=== PATIENT | male | born 1930 | race Caucasian/White ===

== ENCOUNTER 2021-07-02 18:34 | Inpatient (IN) | payer MEDICARE ==
[2021-07-02 19:55] LABS: #Eosinphils 0.1 thou/uL (0.0-0.7); #Monocytes 0.5 thou/uL (0.11-0.59); #Neutrophils 11.2 thou/uL (1.40-6.50); %Eosinophils 0.4 % (0.0-10.0); %Lymphocytes 7.7 % (21.0-51.0); %Neutrophils 87.9 % (42.0-75.0); Hemoglobin 14.7 g/dL (14.0-18.0); Mean Corpuscular HGB CONC 34.3 g/dL (32.0-36.0); Mean Corpuscular Hemoglobin 34.1 pg (27.0-31.0); Mean Corpuscular Volume 99.4 fL (78.0-98.0); Mean Platelet Volume 7.1 fL (7.4-10.4); Platelet Count 212 thou/uL (130-400); RBC Distribution Width 11.4 % (11.5-14.5); Red Blood Cell (RBC) Count 4.32 mill/uL (4.70-6.10); White Blood Cell (WBC) Count 12.7 thou/uL (4.8-10.8)
[2021-07-02 20:17] LABS: ALT (SGPT) 17 U/L (8-55); AST (SGOT) 19 U/L (5-34); Albumin 3.7 g/dL (3.4-4.8); Alkaline Phosphatase 66 U/L (40-110); Anion Gap 12 mmol/L (10-20); BUN (Urea Nitrogen) 20 mg/dL (8.4-25.7); Bilirubin, Total 1.4 mg/dL (0.2-1.2); Calc. Creatinine Clearance 0 mL/min (70-130); Calcium 9.2 mg/dL (7.8-10.44); Carbon Dioxide 24 mmol/L (23-31); Chloride 108 mmol/L (98-107); Globulin 2.9 g/dL (2.4-3.5); Glucose 109 mg/dL (83-110); Potassium 3.7 mmol/L (3.5-5.1); Protein, Total 6.6 g/dL (5.8-8.1); Sodium 140 mmol/L (136-145)
[2021-07-02] MEDS ORDERED: Dextrose 5% in Water 1,000 ML IV PRN (20:35)
[2021-07-02] MEDS ORDERED: Dextrose 50% Abboject 50 ML SYRINGE SLOW IVP PRN (20:35)
[2021-07-02] MEDS ORDERED: hydrALAZINE 20 MG/ML VIAL SLOW IVP PRN (20:35)
[2021-07-02] MEDS ORDERED: Ondansetron PF 4 MG/2 ML Vial IVP PRN (20:35)
[2021-07-02] MEDS ORDERED: Cyclobenzaprine 10 MG TAB PO PRN (20:38)
[2021-07-02] MEDS ORDERED: traMADol HCl 50 MG TAB PO PRN ×2 (20:38)
[2021-07-02] MEDS ORDERED: Morphine 4 MG/ML VIAL SLOW IVP PRN (20:42)
[2021-07-02] MEDS ORDERED: Sodium Chloride 0.9% 1,000 ML IV SCH (20:45)
[2021-07-02 20:52] LABS: Bacteria/HPF None Seen HPF (None Seen); Bilirubin Negative (Negative); Blood, Urine 3+ (Negative); Clarity Clear (Clear); Glucose, Urine (Dipstick) Normal (Negative); Ketone, Urine 60 mg/dL (Negative); Leukocyte Negative Leu/uL (Negative); Mucous/LPF Rare LPF (<2+); Nitrite Negative (Negative); Protein, Urine (Dipstick) 20 mg/dL (Neg-Trace); RBC/HPF Greater than 50 HPF (0-3); Specific Gravity, Urine 1.023 (1.002-1.036); Squamous Epithelial None Seen HPF (0-3); WBC/HPF 0-3 HPF (0-3); pH, Urine 8.5 (5.0-9.0)
[2021-07-02] MEDS ORDERED: Haloperidol Lactate 5 MG/ML VIAL SLOW IVP SCH (22:00)
[2021-07-02 22:44] LABS: Magnesium 1.7 mg/dL (1.6-2.6)
[2021-07-02 22:47] LABS: Troponin I 0.026 ng/mL (< 0.028)
[2021-07-02 22:49] LABS: Phosphorus 1.2 mg/dL (2.3-4.7)
[2021-07-02] MEDS ORDERED: Magnesium 2 GM/50 ML 2 GM in Premix Bag 1 BAG IVPB SCH (23:30)
[2021-07-02] MEDS ORDERED: Potassium Phosphate 30 MMOL in Sodium Chloride 0.9% 250 ML 250 ML IVPB SCH (23:30)
[2021-07-03 00:08] LABS: SARS-CoV-2 NAA Rapid Test Not Detected (NotDetected)
[2021-07-03] MEDS ORDERED: Famotidine 20 MG TAB PO SCH (01:00)
[2021-07-03] MEDS ORDERED: Magnesium 2 GM/50 ML BAG (IN WATER) ONE (01:37)
[2021-07-03] MEDS: Tamsulosin HCl 0.4 MG CAP PO SCH ×2 (02:30→21:10)
[2021-07-03] MEDS: Senokot S 8.6-50 MG TAB PO SCH ×3 (02:30→21:09)
[2021-07-03] MEDS: Ibuprofen 200 MG TAB PO SCH ×4 (02:30→21:10)
[2021-07-03] MEDS ORDERED: Famotidine 20 MG TAB ONE ×2 (02:34→09:12)
[2021-07-03] MEDS: Acetaminophen 500 MG TAB PO SCH ×4 (03:07→19:34)
[2021-07-03 04:41] LABS: #Eosinphils 0.1 thou/uL (0.0-0.7); #Lymphocytes 1.2 thou/uL (1.20-3.40); #Monocytes 0.6 thou/uL (0.11-0.59); #Neutrophils 8.4 thou/uL (1.40-6.50); %Eosinophils 0.5 % (0.0-10.0); %Lymphocytes 11.7 % (21.0-51.0); %Monocytes 5.6 % (0.0-10.0); %Neutrophils 82.2 % (42.0-75.0); Hemoglobin 15.3 g/dL (14.0-18.0); Mean Corpuscular HGB CONC 32.7 g/dL (32.0-36.0); Mean Corpuscular Hemoglobin 32.4 pg (27.0-31.0); Mean Corpuscular Volume 98.9 fL (78.0-98.0); Mean Platelet Volume 7.2 fL (7.4-10.4); Platelet Count 226 thou/uL (130-400); RBC Distribution Width 11.6 % (11.5-14.5); Red Blood Cell (RBC) Count 4.72 mill/uL (4.70-6.10); White Blood Cell (WBC) Count 10.2 thou/uL (4.8-10.8)
[2021-07-03 04:50] LABS: INR-International Normal Ratio 1.1; Prothrombin Time 14.3 sec (12.0-14.7)
[2021-07-03 05:17] LABS: Anion Gap 15 mmol/L (10-20); BUN (Urea Nitrogen) 20 mg/dL (8.4-25.7); Calc. Creatinine Clearance 61 mL/min (70-130); Calcium 9.4 mg/dL (7.8-10.44); Carbon Dioxide 22 mmol/L (23-31); Chloride 105 mmol/L (98-107); Glucose 121 mg/dL (83-110); Magnesium 2.4 mg/dL (1.6-2.6); Phosphorus 2.8 mg/dL (2.3-4.7); Potassium 3.7 mmol/L (3.5-5.1); Sodium 138 mmol/L (136-145)
[2021-07-03] MEDS ORDERED: CEFAZOLIN 2 GM in Sodium Chloride 0.9% 100 ML IVPB SCH (07:15)
[2021-07-03] MEDS: Famotidine 20 MG TAB PO SCH ×2 (09:33→21:09)
[2021-07-03] MEDS ORDERED: CEFAZOLIN 2 GM, Admixture Fee 1 EACH in Sodium Chloride 0.9% 100 ML IVPB SCH (09:45)
[2021-07-03] MEDS ORDERED: Acetaminophen 500 MG TAB ONE (12:16)
[2021-07-03] MEDS ORDERED: HYDROmorphone 2 MG/ML VIAL ONE (15:50)
[2021-07-03] MEDS ORDERED: Fentanyl 100 MCG/2 ML VIAL ONE ×2 (15:50→18:30)
[2021-07-03] MEDS ORDERED: Clindamycin/D5W 900 mg/50 ml Premix Bag ONE (15:58)
[2021-07-03] MEDS ORDERED: PHENYLEPHRINE-NS 100 MCG/ML 10 ML SYRINGE ONE (16:11)
[2021-07-03] MEDS ORDERED: Glycopyrrolate 0.2 MG/ML 5 ML SYRINGE ONE (16:11)
[2021-07-03] MEDS ORDERED: Dexamethasone 20 MG/5 ML VIAL ONE (16:11)
[2021-07-03] MEDS ORDERED: ePHEDrine 50 MG/ML VIAL ONE (16:11)
[2021-07-03] MEDS ORDERED: Rocuronium Bromide 10 MG/ML (10ML VIAL) ONE (16:11)
[2021-07-03] MEDS ORDERED: Ondansetron PF 4 MG/2 ML Vial ONE (16:11)
[2021-07-03] MEDS ORDERED: PROPOFOL 200 MG/20 ML VIAL ONE (16:11)
[2021-07-03] MEDS ORDERED: Lidocaine 1% PF 5 ML VIAL ONE (16:11)
[2021-07-03] MEDS ORDERED: Promethazine HCl 25 MG/ML VIAL IVPB PRN (17:42)
[2021-07-03] MEDS ORDERED: Ondansetron HCl/PF 4 MG/2 ML Vial IVP PRN (17:42)
[2021-07-03] MEDS ORDERED: HYDROmorphone 2 MG/ML VIAL SLOW IVP PRN (17:42)
[2021-07-03] MEDS ORDERED: Promethazine HCl 25 MG/ML VIAL IM PRN (17:42)
[2021-07-03] MEDS: Polyethylene Glycol 3350 17 GM Packet PO SCH (19:34)
[2021-07-03 20:12] VITALS: BMI 27.1
[2021-07-04] MEDS: Acetaminophen 500 MG TAB PO SCH ×4 (00:10→17:26)
[2021-07-04] MEDS: CEFAZOLIN 2 GM, Admixture Fee 1 EACH in Sodium Chloride 0.9% 100 ML IVPB SCH ×2 (00:21→09:39)
[2021-07-04] MEDS: Ibuprofen 200 MG TAB PO SCH ×2 (06:16→14:24)
[2021-07-04] MEDS ORDERED: FLU VACC QS2021-22(65YR UP)/PF 240 MCG/0.7 ML SYRINGE IM ONE (09:00)
[2021-07-04] MEDS ORDERED: Bisacodyl 10 MG SUPP PR SCH (09:00)
[2021-07-04] MEDS ORDERED: Aspirin 81 mg Enteric Coated Tablet PO SCH (09:00)
[2021-07-04] MEDS: Polyethylene Glycol 3350 17 GM Packet PO SCH (09:31)
[2021-07-04] MEDS: Famotidine 20 MG TAB PO SCH (09:32)
[2021-07-04] MEDS: Senokot S 8.6-50 MG TAB PO SCH (09:32)
[2021-07-04] MEDS: ceFAZolin Sodium/D5W 2 GM in Premix Bag 1 BAG IVPB SCH ×2 (10:23→17:57)
[2021-07-04 10:31] LABS: #Lymphocytes 0.7 thou/uL (1.20-3.40); #Monocytes 0.7 thou/uL (0.11-0.59); #Neutrophils 12.3 thou/uL (1.40-6.50); %Eosinophils 0.1 % (0.0-10.0); %Lymphocytes 5.2 % (21.0-51.0); %Monocytes 4.8 % (0.0-10.0); Hemoglobin 12.7 g/dL (14.0-18.0); Mean Corpuscular HGB CONC 32.6 g/dL (32.0-36.0); Mean Corpuscular Hemoglobin 32.8 pg (27.0-31.0); Mean Platelet Volume 7.3 fL (7.4-10.4); Platelet Count 199 thou/uL (130-400); RBC Distribution Width 11.6 % (11.5-14.5); Red Blood Cell (RBC) Count 3.87 mill/uL (4.70-6.10); White Blood Cell (WBC) Count 13.6 thou/uL (4.8-10.8)
[2021-07-04 10:45] LABS: Anion Gap 12 mmol/L (10-20); BUN (Urea Nitrogen) 23 mg/dL (8.4-25.7); Calc. Creatinine Clearance 53 mL/min (70-130); Calcium 8.1 mg/dL (7.8-10.44); Carbon Dioxide 23 mmol/L (23-31); Chloride 106 mmol/L (98-107); Glucose 157 mg/dL (83-110); Magnesium 1.8 mg/dL (1.6-2.6); Sodium 137 mmol/L (136-145)
[2021-07-04 16:13] VITALS: BP 153/78; TEMP 97.8
== END 2021-07-04 18:20 | DRG 522 ==
LOC: ERS 18:34 → ERHOLD 20:01 → SURG A 07-03 14:25
PROVIDERS: ADMIT Surgery; ATTEND Surgery
PROC: 0SRR0JA Replacement of Right Hip Joint, Femoral Surface with Synthetic Substitute, Uncemented, Open Approach (ICD-10-PCS; principal; 2021-07-03)
DX: S72.001A Fracture of unspecified part of neck of right femur, initial encounter for closed fracture (principal); Z20.822 Contact with and (suspected) exposure to COVID-19; I10 Essential (primary) hypertension; R33.9 Retention of urine, unspecified; H91.90 Unspecified hearing loss, unspecified ear; I08.1 Rheumatic disorders of both mitral and tricuspid valves; W18.30XA Fall on same level, unspecified, initial encounter; Y92.009 Unspecified place in unspecified non-institutional (private) residence as the place of occurrence of the external cause; Z90.49 Acquired absence of other specified parts of digestive tract; Z98.49 Cataract extraction status, unspecified eye; Z88.0 Allergy status to penicillin; Z91.013 Allergy to seafood; Z79.899 Other long term (current) drug therapy
CPT/HCPCS: 36415; 51702; 70450; 71045; 72125; 72170; 80048; 80053; 81003; 81015; 83735; 83880; 84100; 84484; 85025; 85610; 85730; 87086; 93005; 93306; C1713; C1776; G0390; J0690; J1100; J1170; J2405; J2704; J3010; J3475; J3490; J7030; J7050; U0002

== ENCOUNTER 2021-08-23 23:04 | Inpatient (IN) | payer MEDICARE ==
[2021-08-24] MEDS ORDERED: Acetaminophen 650 MG Suppository PR PRN (02:42)
[2021-08-24] MEDS ORDERED: Ondansetron PF 4 MG/2 ML Vial IVP PRN (02:42)
[2021-08-24] MEDS ORDERED: Ondansetron ODT 4 MG TAB PO PRN (02:42)
[2021-08-24 03:39] LABS: Anion Gap 17 mmol/L (10-20); BUN (Urea Nitrogen) 23 mg/dL (8.4-25.7); Calc. Creatinine Clearance 45 mL/min (70-130); Carbon Dioxide 17 mmol/L (23-31); Chloride 113 mmol/L (98-107); Glucose 145 mg/dL (83-110); Potassium 3.5 mmol/L (3.5-5.1); Sodium 143 mmol/L (136-145)
[2021-08-24] MEDS: Sodium Chloride 0.9% 1,000 ML IV SCH ×4 (03:46→17:03)
[2021-08-24] MEDS ORDERED: VANCOMYCIN 1.25 GM/250 ML BAG 1.25 GM in Premix Bag 1 BAG IVPB SCH (04:00)
[2021-08-24] MEDS ORDERED: Cefepime 2 GM in Sodium Chloride 0.9% 100 ML IVPB SCH (04:00)
[2021-08-24] MEDS: Vancomycin HCl 750 MG in Sodium Chloride 0.9% 250 ML 250 ML IVPB SCH ×2 (04:02→17:03)
[2021-08-24 07:02] LABS: Hemoglobin 9.5 g/dL (14.0-18.0); Mean Corpuscular HGB CONC 32.1 g/dL (32.0-36.0); Mean Corpuscular Hemoglobin 31.8 pg (27.0-31.0); Mean Corpuscular Volume 99.1 fL (78.0-98.0); Mean Platelet Volume 6.3 fL (7.4-10.4); Platelet Count 360 thou/uL (130-400); RBC Distribution Width 11.7 % (11.5-14.5); Red Blood Cell (RBC) Count 2.97 mill/uL (4.70-6.10); White Blood Cell (WBC) Count 31.7 thou/uL (4.8-10.8)
[2021-08-24 07:11] LABS: Lactic Acid 1.9 mmol/L (0.5-2.2)
[2021-08-24 08:21] LABS: Band 54 % (5-11); Lymphocytes 2 % (21-51); MDiff Complete? YES; Monocytes 3 % (0-10); Neutrophil 41 % (42-75); Platelet Morphology Comment Appears Adequate; Polychromasia SLIGHT = 2-3 cells (100X) (0-2/hpf); Toxic Granulation SLIGHT; Vacuoles SLIGHT
[2021-08-24] MEDS: Enoxaparin Sodium 40 MG/0.4 ML SYRINGE SC SCH ×2 (09:06→09:13)
[2021-08-24] MEDS ORDERED: Meropenem 1 GM in Sodium Chloride 0.9% 100 ML IVPB SCH ×2 (09:15→10:00)
[2021-08-24 16:53] LABS: Anion Gap 14 mmol/L (10-20); BUN (Urea Nitrogen) 26 mg/dL (8.4-25.7); Calc. Creatinine Clearance 48 mL/min (70-130); Calcium 7.9 mg/dL (7.8-10.44); Carbon Dioxide 18 mmol/L (23-31); Chloride 113 mmol/L (98-107); Glucose 100 mg/dL (83-110); Potassium 3.3 mmol/L (3.5-5.1); Sodium 142 mmol/L (136-145)
[2021-08-24] MEDS: Meropenem 1 GM in Sodium Chloride 0.9% 100 ML IVPB SCH (18:08)
[2021-08-24] MEDS ORDERED: Dextrose 5% in Water 1,000 ML IV PRN (18:13)
[2021-08-24] MEDS ORDERED: Dextrose 50% Abboject 50 ML SYRINGE SLOW IVP PRN (18:13)
[2021-08-24] MEDS ORDERED: Nitroglycerin 0.4 MG TAB (25 Tab Bottle) SL PRN (18:16)
[2021-08-24] MEDS ORDERED: Bisacodyl 10 MG SUPP PR SCH (21:00)
[2021-08-24] MEDS ORDERED: Enoxaparin Sodium 40 MG/0.4 ML SYRINGE SC SCH (21:00)
[2021-08-24] MEDS: Senokot S 8.6-50 MG TAB PO SCH (22:01)
[2021-08-24] MEDS: Melatonin 3 MG TAB PO PRN (22:10)
[2021-08-24] MEDS: Aspirin 81 mg Enteric Coated Tablet PO SCH (22:12)
[2021-08-24] MEDS: Acetaminophen 325 MG TAB PO PRN (22:13)
[2021-08-24] MEDS: Multivit, Therapeutic 1 TAB PO SCH (22:15)
[2021-08-24] MEDS: Polyethylene Glycol 3350 17 GM Packet PO SCH (22:16)
[2021-08-24] MEDS: Nystatin Powder 15 GM BOT TOP SCH (22:26)
[2021-08-25] MEDS: Sodium Chloride 0.9% 1,000 ML IV SCH ×3 (02:47→13:10)
[2021-08-25] MEDS: Meropenem 1 GM in Sodium Chloride 0.9% 100 ML IVPB SCH ×2 (02:47→11:26)
[2021-08-25 05:01] LABS: Vancomycin, Trough 16.7 ug/mL
[2021-08-25 05:03] LABS: ALT (SGPT) 43 U/L (8-55); AST (SGOT) 32 U/L (5-34); Albumin 2.5 g/dL (3.4-4.8); Alkaline Phosphatase 133 U/L (40-110); Anion Gap 13 mmol/L (10-20); BUN (Urea Nitrogen) 27 mg/dL (8.4-25.7); Bilirubin, Total 0.5 mg/dL (0.2-1.2); CRP (Inflammatory) 18.49 mg/dL (= or < 0.5); Calc. Creatinine Clearance 49 mL/min (70-130); Carbon Dioxide 18 mmol/L (23-31); Chloride 115 mmol/L (98-107); Globulin 3.2 g/dL (2.4-3.5); Glucose 94 mg/dL (83-110); Phosphorus 2.3 mg/dL (2.3-4.7); Potassium 3.3 mmol/L (3.5-5.1); Protein, Total 5.7 g/dL (5.8-8.1); Sodium 143 mmol/L (136-145)
[2021-08-25] MEDS: Vancomycin HCl 750 MG in Sodium Chloride 0.9% 250 ML 250 ML IVPB SCH ×2 (05:09→17:50)
[2021-08-25 05:12] LABS: Band 47 % (5-11); Eosinophils 1 % (0-10); Hypochromia SLIGHT = 6-15 cells (100X) (0-5/hpf); Lymphocytes 2 % (21-51); MDiff Complete? YES; Macrocytosis SLIGHT = 6-15 cells (100X) (0-5/hpf); Mean Corpuscular HGB CONC 32.2 g/dL (32.0-36.0); Mean Corpuscular Hemoglobin 32.5 pg (27.0-31.0); Mean Platelet Volume 7.1 fL (7.4-10.4); Monocytes 2 % (0-10); Neutrophil 48 % (42-75); Platelet Count 333 thou/uL (130-400); Platelet Morphology Comment Appears Adequate; RBC Distribution Width 11.6 % (11.5-14.5); Red Blood Cell (RBC) Count 2.76 mill/uL (4.70-6.10); Toxic Granulation SLIGHT; White Blood Cell (WBC) Count 24.1 thou/uL (4.8-10.8)
[2021-08-25] MEDS: Acetaminophen 325 MG TAB PO PRN (05:19)
[2021-08-25] MEDS: Senokot S 8.6-50 MG TAB PO SCH ×3 (09:50→23:16)
[2021-08-25] MEDS: Polyethylene Glycol 3350 17 GM Packet PO SCH ×2 (09:51→22:51)
[2021-08-25] MEDS: Nystatin Powder 15 GM BOT TOP SCH ×2 (09:51→22:51)
[2021-08-25] MEDS: Enoxaparin Sodium 80 MG/0.8 ML SYRINGE SC SCH ×2 (09:51→22:50)
[2021-08-25] MEDS ORDERED: Vancomycin 1 GM in Premix Bag 1 BAG IVPB SCH (10:45)
[2021-08-25] MEDS: 1/2 NS w/KCL 20 mEq 1,000 ML IV SCH (14:43)
[2021-08-25] MEDS ORDERED: Lorazepam 2 MG/ML VIAL SLOW IVP SCH ×3 (16:00→23:15)
[2021-08-25] MEDS: Cefepime 2 GM in Sodium Chloride 0.9% 100 ML IVPB SCH (16:10)
[2021-08-25] MEDS: Bisacodyl 10 MG SUPP PR SCH (22:50)
[2021-08-25] MEDS: Aspirin 81 mg Enteric Coated Tablet PO SCH ×2 (22:50→23:16)
[2021-08-25] MEDS: Multivit, Therapeutic 1 TAB PO SCH ×2 (22:51→23:16)
[2021-08-25] MEDS: Tamsulosin HCl 0.4 MG CAP PO SCH (22:51)
[2021-08-25] MEDS ORDERED: Furosemide 40 MG/4 ML VIAL ONE (23:03)
[2021-08-25] MEDS ORDERED: Furosemide 40 MG/4 ML VIAL SLOW IVP SCH (23:15)
[2021-08-25] MEDS ORDERED: Metoprolol Tartrate 5 MG/5 ML VIAL IVP PRN (23:20)
[2021-08-25 23:41] LABS: Actual Bicarbonate (HCO3a) 17.4 mEq/L (22-28); Base Excess (BEa) -6.1 mEq/L (-2.0 to +3.0); CO2 Tension 28.6 mmHg (35.0-45.0); Calcium, Ionized (arterial) 1.16 mmol/L (1.12-1.30); Carboxyhemoglobin (COHb) 0.3 gm% (0.0-3.0); Hemoglobin (Hb) 11.9 g/dL (14.0-18.0); Potassium - ABG Lab 3.36 mmol/L (3.70-5.30)
[2021-08-25 23:42] LABS: O2 Tension (PaO2), arterial 54.5 mmHg (> 60.0)
[2021-08-25 23:43] LABS: Puncture Site LBA
[2021-08-26 00:07] LABS: Mean Corpuscular HGB CONC 31.6 g/dL (32.0-36.0); Mean Corpuscular Hemoglobin 32.1 pg (27.0-31.0); Mean Platelet Volume 6.9 fL (7.4-10.4); Platelet Count 406 thou/uL (130-400); RBC Distribution Width 11.6 % (11.5-14.5); Red Blood Cell (RBC) Count 3.44 mill/uL (4.70-6.10); White Blood Cell (WBC) Count 29.9 thou/uL (4.8-10.8)
[2021-08-26] MEDS ORDERED: methylPREDNISolone Sod Succ/PF 125 MG/2 ML VIAL IVP SCH (00:15)
[2021-08-26 00:19] LABS: Anion Gap 19 mmol/L (10-20); BUN (Urea Nitrogen) 27 mg/dL (8.4-25.7); Calc. Creatinine Clearance 50 mL/min (70-130); Calcium 8.5 mg/dL (7.8-10.44); Carbon Dioxide 16 mmol/L (23-31); Chloride 115 mmol/L (98-107); Glucose 190 mg/dL (83-110); Potassium 3.5 mmol/L (3.5-5.1); Sodium 146 mmol/L (136-145)
[2021-08-26 00:28] LABS: Troponin I 0.926 ng/mL (< 0.028)
[2021-08-26] MEDS: Meropenem 1 GM in Sodium Chloride 0.9% 100 ML IVPB SCH ×2 (00:30→12:42)
[2021-08-26 00:42] LABS: Band 14 % (5-11); Lymphocytes 4 % (21-51); MDiff Complete? YES; Macrocytosis SLIGHT = 6-15 cells (100X) (0-5/hpf); Monocytes 4 % (0-10); Neutrophil 78 % (42-75); Platelet Morphology Comment Appears Increased; Polychromasia SLIGHT = 2-3 cells (100X) (0-2/hpf)
[2021-08-26] MEDS ORDERED: Dexmedetomidine 200 MCG/2 ML VIAL SLOW IVP SCH (00:45)
[2021-08-26] MEDS ORDERED: Meropenem 1 GM in Sodium Chloride 0.9% 100 ML IVPB SCH (01:00)
[2021-08-26] MEDS: 1/2 NS w/KCL 20 mEq 1,000 ML IV SCH ×2 (01:12→02:33)
[2021-08-26 04:01] LABS: Lactic Acid 1.6 mmol/L (0.5-2.2)
[2021-08-26 04:09] LABS: ALT (SGPT) 39 U/L (8-55); AST (SGOT) 29 U/L (5-34); Albumin 2.8 g/dL (3.4-4.8); Alkaline Phosphatase 161 U/L (40-110); Anion Gap 15 mmol/L (10-20); BUN (Urea Nitrogen) 27 mg/dL (8.4-25.7); Bilirubin, Total 0.6 mg/dL (0.2-1.2); Calc. Creatinine Clearance 50 mL/min (70-130); Calcium 8.5 mg/dL (7.8-10.44); Carbon Dioxide 21 mmol/L (23-31); Chloride 114 mmol/L (98-107); Globulin 3.5 g/dL (2.4-3.5); Glucose 174 mg/dL (83-110); Potassium 3.5 mmol/L (3.5-5.1); Protein, Total 6.3 g/dL (5.8-8.1); Sodium 146 mmol/L (136-145)
[2021-08-26 04:13] LABS: Troponin I 1.273 ng/mL (< 0.028)
[2021-08-26 04:14] LABS: Band 25 % (5-11); Hemoglobin 10.3 g/dL (14.0-18.0); Hypochromia SLIGHT = 6-15 cells (100X) (0-5/hpf); Lymphocytes 2 % (21-51); MDiff Complete? YES; Macrocytosis SLIGHT = 6-15 cells (100X) (0-5/hpf); Mean Corpuscular HGB CONC 31.8 g/dL (32.0-36.0); Mean Corpuscular Hemoglobin 31.8 pg (27.0-31.0); Mean Platelet Volume 7.2 fL (7.4-10.4); Monocytes 2 % (0-10); Myelocyte 1 % (0-0); Neutrophil 70 % (42-75); Platelet Count 354 thou/uL (130-400); Platelet Morphology Comment Appears Adequate; Polychromasia SLIGHT = 2-3 cells (100X) (0-2/hpf); RBC Distribution Width 11.7 % (11.5-14.5); Red Blood Cell (RBC) Count 3.23 mill/uL (4.70-6.10); White Blood Cell (WBC) Count 25.4 thou/uL (4.8-10.8)
[2021-08-26] MEDS: Cefepime 2 GM in Sodium Chloride 0.9% 100 ML IVPB SCH (06:18)
[2021-08-26] MEDS: Vancomycin HCl 750 MG in Sodium Chloride 0.9% 250 ML 250 ML IVPB SCH ×2 (06:46→16:52)
[2021-08-26] MEDS: Enoxaparin Sodium 80 MG/0.8 ML SYRINGE SC SCH ×2 (09:27→21:17)
[2021-08-26] MEDS: methylPREDNISolone Sod Succ/PF 125 MG/2 ML VIAL IVP SCH (09:27)
[2021-08-26] MEDS: Senokot S 8.6-50 MG TAB PO SCH ×2 (09:28→21:08)
[2021-08-26] MEDS: Polyethylene Glycol 3350 17 GM Packet PO SCH ×2 (09:28→21:06)
[2021-08-26] MEDS: Nystatin Powder 15 GM BOT TOP SCH ×2 (09:29→21:55)
[2021-08-26] MEDS: Pantoprazole 40 MG VIAL IVP SCH (09:29)
[2021-08-26] MEDS: Multivit, Therapeutic 1 TAB PO SCH (21:05)
[2021-08-26] MEDS: Aspirin 81 mg Enteric Coated Tablet PO SCH (21:05)
[2021-08-26] MEDS: Tamsulosin HCl 0.4 MG CAP PO SCH (21:11)
[2021-08-26] MEDS: Bisacodyl 10 MG SUPP PR SCH (21:18)
[2021-08-27] MEDS: Meropenem 1 GM in Sodium Chloride 0.9% 100 ML IVPB SCH ×3 (00:12→22:58)
[2021-08-27 03:57] LABS: #Lymphocytes 1.3 thou/uL (1.20-3.40); #Monocytes 0.4 thou/uL (0.11-0.59); #Neutrophils 17.5 thou/uL (1.40-6.50); %Eosinophils 0.1 % (0.0-10.0); %Lymphocytes 6.6 % (21.0-51.0); %Monocytes 2.2 % (0.0-10.0); %Neutrophils 91.1 % (42.0-75.0); Hemoglobin 9.8 g/dL (14.0-18.0); Mean Corpuscular HGB CONC 33.1 g/dL (32.0-36.0); Mean Corpuscular Hemoglobin 32.6 pg (27.0-31.0); Mean Corpuscular Volume 98.5 fL (78.0-98.0); Mean Platelet Volume 7.1 fL (7.4-10.4); Platelet Count 343 thou/uL (130-400); RBC Distribution Width 11.7 % (11.5-14.5); Red Blood Cell (RBC) Count 3.01 mill/uL (4.70-6.10); White Blood Cell (WBC) Count 19.2 thou/uL (4.8-10.8)
[2021-08-27] MEDS: Vancomycin HCl 750 MG in Sodium Chloride 0.9% 250 ML 250 ML IVPB SCH (04:00)
[2021-08-27 04:11] LABS: Phosphorus 2.3 mg/dL (2.3-4.7); Vancomycin, Trough 24.2 ug/mL
[2021-08-27 04:23] LABS: Anion Gap 14 mmol/L (10-20); BUN (Urea Nitrogen) 38 mg/dL (8.4-25.7); Calc. Creatinine Clearance 45 mL/min (70-130); Calcium 8.4 mg/dL (7.8-10.44); Carbon Dioxide 22 mmol/L (23-31); Chloride 118 mmol/L (98-107); Glucose 176 mg/dL (83-110); Magnesium 2.2 mg/dL (1.6-2.6); Potassium 3.5 mmol/L (3.5-5.1); Sodium 150 mmol/L (136-145)
[2021-08-27] MEDS ORDERED: FLU VACC QS2021-22(65YR UP)/PF 240 MCG/0.7 ML SYRINGE IM ONE (09:00)
[2021-08-27] MEDS: methylPREDNISolone Sod Succ/PF 125 MG/2 ML VIAL IVP SCH (09:37)
[2021-08-27] MEDS: Enoxaparin Sodium 40 MG/0.4 ML SYRINGE SC SCH ×2 (09:37→20:00)
[2021-08-27] MEDS: Senokot S 8.6-50 MG TAB PO SCH ×2 (09:38→20:01)
[2021-08-27] MEDS: Pantoprazole 40 MG VIAL IVP SCH (09:38)
[2021-08-27] MEDS: Nystatin Powder 15 GM BOT TOP SCH ×2 (09:38→20:01)
[2021-08-27] MEDS: Polyethylene Glycol 3350 17 GM Packet PO SCH ×2 (09:38→20:01)
[2021-08-27] MEDS: Lorazepam 2 MG/ML VIAL SLOW IVP PRN ×2 (11:38→20:54)
[2021-08-27] MEDS: Enalaprilat Dihydrate 1.25 MG/ML VIAL SLOW IVP SCH ×3 (11:47→22:58)
[2021-08-27 13:09] LABS: Anion Gap 15 mmol/L (10-20); BUN (Urea Nitrogen) 43 mg/dL (8.4-25.7); Calc. Creatinine Clearance 39 mL/min (70-130); Calcium 8.7 mg/dL (7.8-10.44); Carbon Dioxide 21 mmol/L (23-31); Chloride 118 mmol/L (98-107); Glucose 160 mg/dL (83-110); Potassium 3.6 mmol/L (3.5-5.1); Sodium 150 mmol/L (136-145)
[2021-08-27] MEDS: Tamsulosin HCl 0.4 MG CAP PO SCH (20:01)
[2021-08-27] MEDS: Aspirin 81 mg Enteric Coated Tablet PO SCH (20:01)
[2021-08-27] MEDS: Multivit, Therapeutic 1 TAB PO SCH (20:01)
[2021-08-28] MEDS: VANCOMYCIN 1.25 GM/250 ML BAG 1.25 GM in Premix Bag 1 BAG IVPB SCH (03:56)
[2021-08-28 03:57] LABS: #Lymphocytes 1.6 thou/uL (1.20-3.40); #Monocytes 0.5 thou/uL (0.11-0.59); #Neutrophils 14.6 thou/uL (1.40-6.50); %Basophils 0.2 % (0.0-1.0); %Eosinophils 0.1 % (0.0-10.0); %Lymphocytes 9.2 % (21.0-51.0); %Monocytes 3.1 % (0.0-10.0); %Neutrophils 87.4 % (42.0-75.0); Hemoglobin 10.8 g/dL (14.0-18.0); Mean Corpuscular HGB CONC 32.4 g/dL (32.0-36.0); Mean Corpuscular Hemoglobin 31.9 pg (27.0-31.0); Mean Corpuscular Volume 98.6 fL (78.0-98.0); Mean Platelet Volume 7.8 fL (7.4-10.4); Platelet Count 358 thou/uL (130-400); RBC Distribution Width 11.9 % (11.5-14.5); Red Blood Cell (RBC) Count 3.38 mill/uL (4.70-6.10); White Blood Cell (WBC) Count 16.7 thou/uL (4.8-10.8)
[2021-08-28 04:19] LABS: Anion Gap 14 mmol/L (10-20); BUN (Urea Nitrogen) 47 mg/dL (8.4-25.7); Calc. Creatinine Clearance 46 mL/min (70-130); Calcium 8.5 mg/dL (7.8-10.44); Carbon Dioxide 20 mmol/L (23-31); Chloride 120 mmol/L (98-107); Glucose 152 mg/dL (83-110); Potassium 3.6 mmol/L (3.5-5.1); Sodium 150 mmol/L (136-145)
[2021-08-28] MEDS: Enalaprilat Dihydrate 1.25 MG/ML VIAL SLOW IVP SCH (05:26)
[2021-08-28] MEDS: Lorazepam 2 MG/ML VIAL SLOW IVP PRN ×2 (07:22→13:34)
[2021-08-28] MEDS: methylPREDNISolone Sod Succ/PF 125 MG/2 ML VIAL IVP SCH (09:03)
[2021-08-28] MEDS: Enoxaparin Sodium 40 MG/0.4 ML SYRINGE SC SCH ×2 (09:03→19:55)
[2021-08-28] MEDS: Nystatin Powder 15 GM BOT TOP SCH ×2 (09:04→19:57)
[2021-08-28] MEDS: Senokot S 8.6-50 MG TAB PO SCH ×2 (09:06→19:56)
[2021-08-28] MEDS: Polyethylene Glycol 3350 17 GM Packet PO SCH ×2 (09:06→19:56)
[2021-08-28] MEDS: Pantoprazole 40 MG VIAL IVP SCH (09:06)
[2021-08-28] MEDS: Lisinopril 10 MG TAB PO SCH ×2 (09:23→19:56)
[2021-08-28] MEDS: Meropenem 1 GM in Sodium Chloride 0.9% 100 ML IVPB SCH (11:47)
[2021-08-28] MEDS: Insulin Regular 300 UNITS/3 ML VIAL SC PRN (17:28)
[2021-08-28] MEDS: Multivit, Therapeutic 1 TAB PO SCH (19:56)
[2021-08-28] MEDS: Tamsulosin HCl 0.4 MG CAP PO SCH (19:56)
[2021-08-28] MEDS: Aspirin 81 mg Enteric Coated Tablet PO SCH (19:56)
[2021-08-29] MEDS: Meropenem 1 GM in Sodium Chloride 0.9% 100 ML IVPB SCH ×3 (00:29→14:00)
[2021-08-29] MEDS: Insulin Regular 300 UNITS/3 ML VIAL SC PRN ×4 (00:36→19:13)
[2021-08-29] MEDS: VANCOMYCIN 1.25 GM/250 ML BAG 1.25 GM in Premix Bag 1 BAG IVPB SCH (04:27)
[2021-08-29 04:35] LABS: #Lymphocytes 1.2 thou/uL (1.20-3.40); #Monocytes 0.6 thou/uL (0.11-0.59); #Neutrophils 10.1 thou/uL (1.40-6.50); %Basophils 0.1 % (0.0-1.0); %Eosinophils 0.2 % (0.0-10.0); %Lymphocytes 10.1 % (21.0-51.0); %Monocytes 4.8 % (0.0-10.0); %Neutrophils 84.7 % (42.0-75.0); Hemoglobin 10.4 g/dL (14.0-18.0); Mean Corpuscular HGB CONC 33.2 g/dL (32.0-36.0); Mean Corpuscular Volume 99.4 fL (78.0-98.0); Mean Platelet Volume 8.2 fL (7.4-10.4); Platelet Count 374 thou/uL (130-400); RBC Distribution Width 11.9 % (11.5-14.5); Red Blood Cell (RBC) Count 3.15 mill/uL (4.70-6.10); White Blood Cell (WBC) Count 11.9 thou/uL (4.8-10.8)
[2021-08-29 05:06] LABS: Anion Gap 11 mmol/L (10-20); BUN (Urea Nitrogen) 52 mg/dL (8.4-25.7); Calc. Creatinine Clearance 54 mL/min (70-130); Calcium 8.4 mg/dL (7.8-10.44); Carbon Dioxide 24 mmol/L (23-31); Chloride 119 mmol/L (98-107); Glucose 156 mg/dL (83-110); Potassium 3.7 mmol/L (3.5-5.1); Sodium 150 mmol/L (136-145); Vancomycin, Trough 18.5 ug/mL
[2021-08-29] MEDS: Polyethylene Glycol 3350 17 GM Packet PO SCH ×2 (08:46→21:31)
[2021-08-29] MEDS: Enoxaparin Sodium 40 MG/0.4 ML SYRINGE SC SCH ×2 (08:47→20:49)
[2021-08-29] MEDS: methylPREDNISolone Sod Succ/PF 125 MG/2 ML VIAL IVP SCH (08:48)
[2021-08-29] MEDS: Senokot S 8.6-50 MG TAB PO SCH ×2 (08:48→21:31)
[2021-08-29] MEDS: Nystatin Powder 15 GM BOT TOP SCH (08:49)
[2021-08-29] MEDS: Lisinopril 10 MG TAB PO SCH ×2 (08:49→20:49)
[2021-08-29] MEDS: Lansoprazole 3 MG/ML ORAL SUSPENSION PER TUBE SCH (09:03)
[2021-08-29] MEDS: Aspirin Chewable 81 MG TAB PO SCH (20:48)
[2021-08-29] MEDS: Tamsulosin HCl 0.4 MG CAP PO SCH (20:48)
[2021-08-29] MEDS: Multivit, Therapeutic 1 TAB PO SCH (20:49)
[2021-08-30] MEDS: Nystatin Powder 15 GM BOT TOP SCH ×3 (00:15→21:37)
[2021-08-30] MEDS: Meropenem 1 GM in Sodium Chloride 0.9% 100 ML IVPB SCH ×4 (00:15→15:51)
[2021-08-30 04:35] LABS: #Eosinphils 0.1 thou/uL (0.0-0.7); #Lymphocytes 1.4 thou/uL (1.20-3.40); #Monocytes 0.5 thou/uL (0.11-0.59); #Neutrophils 10.3 thou/uL (1.40-6.50); %Basophils 0.1 % (0.0-1.0); %Eosinophils 0.8 % (0.0-10.0); %Lymphocytes 11.5 % (21.0-51.0); %Monocytes 4.2 % (0.0-10.0); %Neutrophils 83.4 % (42.0-75.0); Hemoglobin 10.9 g/dL (14.0-18.0); Mean Corpuscular HGB CONC 32.3 g/dL (32.0-36.0); Mean Corpuscular Hemoglobin 32.2 pg (27.0-31.0); Mean Corpuscular Volume 99.5 fL (78.0-98.0); Mean Platelet Volume 8.1 fL (7.4-10.4); Platelet Count 393 thou/uL (130-400); Red Blood Cell (RBC) Count 3.37 mill/uL (4.70-6.10); White Blood Cell (WBC) Count 12.3 thou/uL (4.8-10.8)
[2021-08-30 04:53] LABS: Anion Gap 8 mmol/L (10-20); BUN (Urea Nitrogen) 46 mg/dL (8.4-25.7); Calc. Creatinine Clearance 62 mL/min (70-130); Calcium 8.3 mg/dL (7.8-10.44); Carbon Dioxide 32 mmol/L (23-31); Chloride 116 mmol/L (98-107); Glucose 152 mg/dL (83-110); Potassium 3.6 mmol/L (3.5-5.1); Sodium 152 mmol/L (136-145)
[2021-08-30] MEDS: VANCOMYCIN 1.25 GM/250 ML BAG 1.25 GM in Premix Bag 1 BAG IVPB SCH (05:20)
[2021-08-30] MEDS: methylPREDNISolone Sod Succ/PF 125 MG/2 ML VIAL IVP SCH (06:09)
[2021-08-30] MEDS: Lansoprazole 3 MG/ML ORAL SUSPENSION PER TUBE SCH (08:05)
[2021-08-30] MEDS: Lisinopril 10 MG TAB PO SCH (08:05)
[2021-08-30] MEDS: Enoxaparin Sodium 40 MG/0.4 ML SYRINGE SC SCH ×2 (08:05→21:24)
[2021-08-30] MEDS: Senokot S 8.6-50 MG TAB PO SCH ×2 (08:06→22:22)
[2021-08-30] MEDS: Polyethylene Glycol 3350 17 GM Packet PO SCH ×2 (08:06→22:22)
[2021-08-30] MEDS: Lisinopril 20 MG TAB PO SCH ×2 (09:04→21:24)
[2021-08-30] MEDS: Insulin Regular 300 UNITS/3 ML VIAL SC PRN (11:58)
[2021-08-30 13:33] VITALS: BMI 24.6
[2021-08-30] MEDS ORDERED: hydrALAZINE 20 MG/ML VIAL SLOW IVP PRN (19:54)
[2021-08-30] MEDS: Tamsulosin HCl 0.4 MG CAP PO SCH (21:24)
[2021-08-30] MEDS: Multivit, Therapeutic 1 TAB PO SCH (21:24)
[2021-08-30] MEDS: Aspirin Chewable 81 MG TAB PO SCH (21:24)
[2021-08-30 22:36] LABS: Anion Gap 12 mmol/L (10-20); BUN (Urea Nitrogen) 37 mg/dL (8.4-25.7); Calc. Creatinine Clearance 66 mL/min (70-130); Calcium 8.1 mg/dL (7.8-10.44); Carbon Dioxide 27 mmol/L (23-31); Chloride 113 mmol/L (98-107); Glucose 162 mg/dL (83-110); Potassium 3.7 mmol/L (3.5-5.1); Sodium 148 mmol/L (136-145)
[2021-08-31] MEDS: Meropenem 1 GM in Sodium Chloride 0.9% 100 ML IVPB SCH ×3 (00:28→16:43)
[2021-08-31] MEDS: VANCOMYCIN 1.25 GM/250 ML BAG 1.25 GM in Premix Bag 1 BAG IVPB SCH (05:50)
[2021-08-31] MEDS: methylPREDNISolone Sod Succ/PF 125 MG/2 ML VIAL IVP SCH (06:44)
[2021-08-31] MEDS: Lisinopril 20 MG TAB PO SCH ×2 (08:24→22:38)
[2021-08-31] MEDS: Polyethylene Glycol 3350 17 GM Packet PO SCH ×2 (08:24→22:40)
[2021-08-31] MEDS: Senokot S 8.6-50 MG TAB PO SCH ×2 (08:24→22:41)
[2021-08-31] MEDS: Enoxaparin Sodium 40 MG/0.4 ML SYRINGE SC SCH ×2 (08:25→22:36)
[2021-08-31 10:33] LABS: #Eosinphils 0.1 thou/uL (0.0-0.7); #Lymphocytes 1.1 thou/uL (1.20-3.40); #Monocytes 0.3 thou/uL (0.11-0.59); #Neutrophils 10.5 thou/uL (1.40-6.50); %Basophils 0.1 % (0.0-1.0); %Eosinophils 0.5 % (0.0-10.0); %Lymphocytes 9.4 % (21.0-51.0); %Monocytes 2.2 % (0.0-10.0); %Neutrophils 87.8 % (42.0-75.0); Hemoglobin 12.3 g/dL (14.0-18.0); Mean Corpuscular HGB CONC 31.8 g/dL (32.0-36.0); Mean Corpuscular Hemoglobin 32.4 pg (27.0-31.0); Mean Platelet Volume 8.6 fL (7.4-10.4); Platelet Count 350 thou/uL (130-400); RBC Distribution Width 12.6 % (11.5-14.5); Red Blood Cell (RBC) Count 3.78 mill/uL (4.70-6.10); White Blood Cell (WBC) Count 11.9 thou/uL (4.8-10.8)
[2021-08-31 10:42] LABS: Vancomycin, Trough 29.1 ug/mL
[2021-08-31 10:46] LABS: Anion Gap 10 mmol/L (10-20); BUN (Urea Nitrogen) 36 mg/dL (8.4-25.7); Calc. Creatinine Clearance 67 mL/min (70-130); Calcium 8.3 mg/dL (7.8-10.44); Carbon Dioxide 28 mmol/L (23-31); Chloride 112 mmol/L (98-107); Glucose 179 mg/dL (83-110); Magnesium 2.4 mg/dL (1.6-2.6); Potassium 3.8 mmol/L (3.5-5.1); Sodium 146 mmol/L (136-145)
[2021-08-31] MEDS: Lansoprazole 3 MG/ML ORAL SUSPENSION PER TUBE SCH (11:13)
[2021-08-31] MEDS: Nystatin Powder 15 GM BOT TOP SCH ×2 (11:13→22:40)
[2021-08-31] MEDS ORDERED: Spironolactone 25 MG TAB PO SCH (13:00)
[2021-08-31] MEDS: Insulin Regular 300 UNITS/3 ML VIAL SC PRN (13:12)
[2021-08-31] MEDS: Aspirin Chewable 81 MG TAB PO SCH (22:36)
[2021-08-31] MEDS: Tamsulosin HCl 0.4 MG CAP PO SCH (22:37)
[2021-08-31] MEDS: Multivit, Therapeutic 1 TAB PO SCH (22:40)
[2021-08-31] MEDS: Melatonin 3 MG TAB PO PRN (22:40)
[2021-09-01] MEDS: Meropenem 1 GM in Sodium Chloride 0.9% 100 ML IVPB SCH ×3 (00:05→17:17)
[2021-09-01 04:56] LABS: #Eosinphils 0.1 thou/uL (0.0-0.7); #Lymphocytes 1.5 thou/uL (1.20-3.40); #Monocytes 0.6 thou/uL (0.11-0.59); #Neutrophils 7.7 thou/uL (1.40-6.50); %Basophils 0.1 % (0.0-1.0); %Eosinophils 1.1 % (0.0-10.0); %Lymphocytes 14.7 % (21.0-51.0); %Monocytes 6.4 % (0.0-10.0); %Neutrophils 77.7 % (42.0-75.0); Hemoglobin 11.4 g/dL (14.0-18.0); Mean Corpuscular HGB CONC 31.8 g/dL (32.0-36.0); Mean Corpuscular Hemoglobin 32.2 pg (27.0-31.0); Mean Platelet Volume 8.6 fL (7.4-10.4); Platelet Count 333 thou/uL (130-400); RBC Distribution Width 12.9 % (11.5-14.5); Red Blood Cell (RBC) Count 3.54 mill/uL (4.70-6.10); White Blood Cell (WBC) Count 9.9 thou/uL (4.8-10.8)
[2021-09-01 05:13] LABS: Vancomycin, Trough 16.3 ug/mL
[2021-09-01 05:14] LABS: Anion Gap 8 mmol/L (10-20); BUN (Urea Nitrogen) 36 mg/dL (8.4-25.7); Calc. Creatinine Clearance 68 mL/min (70-130); Calcium 7.9 mg/dL (7.8-10.44); Carbon Dioxide 30 mmol/L (23-31); Chloride 112 mmol/L (98-107); Glucose 154 mg/dL (83-110); Magnesium 2.4 mg/dL (1.6-2.6); Potassium 3.9 mmol/L (3.5-5.1); Sodium 146 mmol/L (136-145)
[2021-09-01] MEDS: VANCOMYCIN 1.25 GM/250 ML BAG 1.25 GM in Premix Bag 1 BAG IVPB SCH (06:19)
[2021-09-01] MEDS: methylPREDNISolone Sod Succ/PF 125 MG/2 ML VIAL IVP SCH (06:20)
[2021-09-01] MEDS: Lansoprazole 3 MG/ML ORAL SUSPENSION PER TUBE SCH (08:16)
[2021-09-01] MEDS: Nystatin Powder 15 GM BOT TOP SCH ×2 (08:18→20:44)
[2021-09-01] MEDS: Lisinopril 20 MG TAB PO SCH ×2 (08:19→20:43)
[2021-09-01] MEDS: Enoxaparin Sodium 40 MG/0.4 ML SYRINGE SC SCH ×2 (08:19→20:43)
[2021-09-01] MEDS: Polyethylene Glycol 3350 17 GM Packet PO SCH ×2 (08:20→20:44)
[2021-09-01] MEDS: Spironolactone 25 MG TAB PO SCH (08:20)
[2021-09-01] MEDS: Senokot S 8.6-50 MG TAB PO SCH ×2 (08:20→20:44)
[2021-09-01] MEDS ORDERED: Carvedilol 3.125 MG TAB PO SCH (10:00)
[2021-09-01] MEDS: Insulin Regular 300 UNITS/3 ML VIAL SC PRN ×2 (14:04→16:41)
[2021-09-01] MEDS: Carvedilol 3.125 MG TAB PO SCH (16:40)
[2021-09-01] MEDS: Aspirin Chewable 81 MG TAB PO SCH (20:43)
[2021-09-01] MEDS: Multivit, Therapeutic 1 TAB PO SCH (20:43)
[2021-09-01] MEDS: Tamsulosin HCl 0.4 MG CAP PO SCH (20:44)
[2021-09-02] MEDS: Meropenem 1 GM in Sodium Chloride 0.9% 100 ML IVPB SCH ×4 (00:38→23:48)
[2021-09-02] MEDS: VANCOMYCIN 1.25 GM/250 ML BAG 1.25 GM in Premix Bag 1 BAG IVPB SCH (05:05)
[2021-09-02] MEDS: methylPREDNISolone Sod Succ/PF 125 MG/2 ML VIAL IVP SCH (05:05)
[2021-09-02] MEDS: methylPREDNISolone Sod Succ 40 MG VIAL IVP SCH (05:08)
[2021-09-02] MEDS: Lisinopril 20 MG TAB PO SCH ×2 (09:17→20:38)
[2021-09-02] MEDS: Spironolactone 25 MG TAB PO SCH (09:17)
[2021-09-02] MEDS: Carvedilol 3.125 MG TAB PO SCH ×2 (09:18→17:44)
[2021-09-02] MEDS: Senokot S 8.6-50 MG TAB PO SCH ×2 (09:18→19:12)
[2021-09-02] MEDS: Enoxaparin Sodium 40 MG/0.4 ML SYRINGE SC SCH ×2 (09:19→20:34)
[2021-09-02] MEDS: Polyethylene Glycol 3350 17 GM Packet PO SCH ×2 (09:20→19:12)
[2021-09-02] MEDS: Nystatin Powder 15 GM BOT TOP SCH ×2 (09:20→20:38)
[2021-09-02 09:54] LABS: Anion Gap 11 mmol/L (10-20); BUN (Urea Nitrogen) 34 mg/dL (8.4-25.7); Calc. Creatinine Clearance 69 mL/min (70-130); Carbon Dioxide 26 mmol/L (23-31); Chloride 109 mmol/L (98-107); Glucose 151 mg/dL (83-110); Magnesium 2.5 mg/dL (1.6-2.6); Potassium 4.4 mmol/L (3.5-5.1); Sodium 142 mmol/L (136-145)
[2021-09-02 10:01] LABS: #Eosinphils 0.2 thou/uL (0.0-0.7); #Lymphocytes 0.9 thou/uL (1.20-3.40); #Monocytes 0.3 thou/uL (0.11-0.59); #Neutrophils 12.9 thou/uL (1.40-6.50); %Eosinophils 1.4 % (0.0-10.0); %Lymphocytes 6.6 % (21.0-51.0); %Monocytes 2.1 % (0.0-10.0); %Neutrophils 89.9 % (42.0-75.0); Mean Corpuscular HGB CONC 30.4 g/dL (32.0-36.0); Mean Corpuscular Hemoglobin 30.9 pg (27.0-31.0); Mean Platelet Volume 9.1 fL (7.4-10.4); Platelet Count 343 thou/uL (130-400); RBC Distribution Width 13.5 % (11.5-14.5); Red Blood Cell (RBC) Count 3.88 mill/uL (4.70-6.10); White Blood Cell (WBC) Count 14.3 thou/uL (4.8-10.8)
[2021-09-02] MEDS: Lansoprazole 3 MG/ML ORAL SUSPENSION PER TUBE SCH (15:59)
[2021-09-02] MEDS: Tamsulosin HCl 0.4 MG CAP PO SCH (20:37)
[2021-09-02] MEDS: Aspirin Chewable 81 MG TAB PO SCH (20:37)
[2021-09-02] MEDS: Multivit, Therapeutic 1 TAB PO SCH (20:38)
[2021-09-03 04:12] LABS: #Eosinphils 0.3 thou/uL (0.0-0.7); #Monocytes 0.9 thou/uL (0.11-0.59); #Neutrophils 7.1 thou/uL (1.40-6.50); %Eosinophils 2.5 % (0.0-10.0); %Lymphocytes 19.4 % (21.0-51.0); %Monocytes 8.7 % (0.0-10.0); %Neutrophils 69.5 % (42.0-75.0); Hemoglobin 11.7 g/dL (14.0-18.0); Mean Corpuscular Hemoglobin 32.4 pg (27.0-31.0); Mean Platelet Volume 8.6 fL (7.4-10.4); Platelet Count 326 thou/uL (130-400); RBC Distribution Width 13.3 % (11.5-14.5); White Blood Cell (WBC) Count 10.2 thou/uL (4.8-10.8)
[2021-09-03 04:23] LABS: Vancomycin, Trough 16.7 ug/mL
[2021-09-03 04:25] LABS: Magnesium 2.5 mg/dL (1.6-2.6)
[2021-09-03 04:29] LABS: ALT (SGPT) 58 U/L (8-55); AST (SGOT) 25 U/L (5-34); Albumin 2.2 g/dL (3.4-4.8); Alkaline Phosphatase 132 U/L (40-110); Anion Gap 8 mmol/L (10-20); BUN (Urea Nitrogen) 34 mg/dL (8.4-25.7); Bilirubin, Direct 0.3 mg/dL (0.1-0.3); Bilirubin, Total 0.6 mg/dL (0.2-1.2); Calc. Creatinine Clearance 72 mL/min (70-130); Calcium 7.9 mg/dL (7.8-10.44); Carbon Dioxide 30 mmol/L (23-31); Chloride 108 mmol/L (98-107); Glucose 100 mg/dL (83-110); Phosphorus 3.3 mg/dL (2.3-4.7); Potassium 4.5 mmol/L (3.5-5.1); Protein, Total 4.9 g/dL (5.8-8.1); Sodium 141 mmol/L (136-145)
[2021-09-03] MEDS: methylPREDNISolone Sod Succ 40 MG VIAL IVP SCH (04:32)
[2021-09-03] MEDS: VANCOMYCIN 1.25 GM/250 ML BAG 1.25 GM in Premix Bag 1 BAG IVPB SCH (04:32)
[2021-09-03] MEDS: Meropenem 1 GM in Sodium Chloride 0.9% 100 ML IVPB SCH ×3 (08:09→23:16)
[2021-09-03] MEDS: Enoxaparin Sodium 40 MG/0.4 ML SYRINGE SC SCH ×2 (08:09→20:26)
[2021-09-03] MEDS: Lisinopril 20 MG TAB PO SCH ×2 (08:10→20:26)
[2021-09-03] MEDS: Polyethylene Glycol 3350 17 GM Packet PO SCH ×2 (08:10→19:23)
[2021-09-03] MEDS: Senokot S 8.6-50 MG TAB PO SCH ×2 (08:10→19:24)
[2021-09-03] MEDS: Spironolactone 25 MG TAB PO SCH (08:10)
[2021-09-03] MEDS: Carvedilol 3.125 MG TAB PO SCH ×2 (08:10→17:44)
[2021-09-03] MEDS: Nystatin Powder 15 GM BOT TOP SCH ×2 (08:11→20:27)
[2021-09-03] MEDS: Lansoprazole 3 MG/ML ORAL SUSPENSION PER TUBE SCH (12:54)
[2021-09-03 15:40] LABS: SARS-CoV-2 PCR by NAA Not Detected (NotDetected)
[2021-09-03] MEDS: Aspirin Chewable 81 MG TAB PO SCH (20:26)
[2021-09-03] MEDS: Multivit, Therapeutic 1 TAB PO SCH (20:26)
[2021-09-03] MEDS: Tamsulosin HCl 0.4 MG CAP PO SCH (20:27)
[2021-09-04] MEDS: VANCOMYCIN 1.25 GM/250 ML BAG 1.25 GM in Premix Bag 1 BAG IVPB SCH (06:07)
[2021-09-04] MEDS: methylPREDNISolone Sod Succ 40 MG VIAL IVP SCH (06:07)
[2021-09-04] MEDS: Polyethylene Glycol 3350 17 GM Packet PO SCH ×2 (08:11→19:12)
[2021-09-04] MEDS: Meropenem 1 GM in Sodium Chloride 0.9% 100 ML IVPB SCH ×3 (08:11→23:29)
[2021-09-04] MEDS: Lisinopril 20 MG TAB PO SCH ×2 (08:12→20:40)
[2021-09-04] MEDS: Senokot S 8.6-50 MG TAB PO SCH ×2 (08:12→19:12)
[2021-09-04] MEDS: Spironolactone 25 MG TAB PO SCH (08:13)
[2021-09-04] MEDS: Enoxaparin Sodium 40 MG/0.4 ML SYRINGE SC SCH ×2 (08:13→20:40)
[2021-09-04] MEDS: Carvedilol 3.125 MG TAB PO SCH ×2 (08:13→16:03)
[2021-09-04] MEDS: Lansoprazole 3 MG/ML ORAL SUSPENSION PER TUBE SCH (08:14)
[2021-09-04] MEDS: Nystatin Powder 15 GM BOT TOP SCH ×2 (08:14→20:40)
[2021-09-04 19:22] LABS: #Eosinphils 0.1 thou/uL (0.0-0.7); #Lymphocytes 1.5 thou/uL (1.20-3.40); #Monocytes 0.9 thou/uL (0.11-0.59); #Neutrophils 9.1 thou/uL (1.40-6.50); %Basophils 0.1 % (0.0-1.0); %Eosinophils 0.8 % (0.0-10.0); %Monocytes 7.7 % (0.0-10.0); %Neutrophils 78.4 % (42.0-75.0); Hemoglobin 11.5 g/dL (14.0-18.0); Mean Corpuscular HGB CONC 31.9 g/dL (32.0-36.0); Platelet Count 355 thou/uL (130-400); RBC Distribution Width 13.4 % (11.5-14.5); White Blood Cell (WBC) Count 11.6 thou/uL (4.8-10.8)
[2021-09-04 19:39] LABS: Anion Gap 12 mmol/L (10-20); BUN (Urea Nitrogen) 33 mg/dL (8.4-25.7); Calc. Creatinine Clearance 61 mL/min (70-130); Calcium 7.9 mg/dL (7.8-10.44); Carbon Dioxide 25 mmol/L (23-31); Chloride 103 mmol/L (98-107); Glucose 118 mg/dL (83-110); Potassium 4.5 mmol/L (3.5-5.1); Sodium 135 mmol/L (136-145)
[2021-09-04] MEDS: Multivit, Therapeutic 1 TAB PO SCH (20:40)
[2021-09-04] MEDS: Aspirin Chewable 81 MG TAB PO SCH (20:40)
[2021-09-04] MEDS: Tamsulosin HCl 0.4 MG CAP PO SCH (20:40)
[2021-09-05] MEDS: VANCOMYCIN 1.25 GM/250 ML BAG 1.25 GM in Premix Bag 1 BAG IVPB SCH ×3 (04:50→10:30)
[2021-09-05] MEDS: methylPREDNISolone Sod Succ 40 MG VIAL IVP SCH (04:50)
[2021-09-05 07:59] LABS: #Eosinphils 0.2 thou/uL (0.0-0.7); #Neutrophils 7.6 thou/uL (1.40-6.50); %Basophils 0.4 % (0.0-1.0); %Eosinophils 1.9 % (0.0-10.0); %Lymphocytes 18.1 % (21.0-51.0); %Monocytes 9.6 % (0.0-10.0); Hemoglobin 12.6 g/dL (14.0-18.0); Mean Corpuscular HGB CONC 31.9 g/dL (32.0-36.0); Mean Corpuscular Hemoglobin 32.1 pg (27.0-31.0); Mean Platelet Volume 8.8 fL (7.4-10.4); Platelet Count 358 thou/uL (130-400); RBC Distribution Width 13.4 % (11.5-14.5); Red Blood Cell (RBC) Count 3.93 mill/uL (4.70-6.10); White Blood Cell (WBC) Count 10.9 thou/uL (4.8-10.8)
[2021-09-05] MEDS: Meropenem 1 GM in Sodium Chloride 0.9% 100 ML IVPB SCH ×2 (07:59→17:00)
[2021-09-05] MEDS: Lansoprazole 3 MG/ML ORAL SUSPENSION PER TUBE SCH (08:00)
[2021-09-05] MEDS: Nystatin Powder 15 GM BOT TOP SCH ×2 (08:01→19:55)
[2021-09-05] MEDS: Lisinopril 20 MG TAB PO SCH ×2 (08:01→19:55)
[2021-09-05] MEDS: Senokot S 8.6-50 MG TAB PO SCH ×2 (08:01→19:56)
[2021-09-05] MEDS: Carvedilol 3.125 MG TAB PO SCH ×2 (08:01→17:18)
[2021-09-05] MEDS: Polyethylene Glycol 3350 17 GM Packet PO SCH ×2 (08:01→19:56)
[2021-09-05] MEDS: Enoxaparin Sodium 40 MG/0.4 ML SYRINGE SC SCH ×2 (08:01→19:55)
[2021-09-05] MEDS: Spironolactone 25 MG TAB PO SCH (08:02)
[2021-09-05 08:14] LABS: Vancomycin, Trough 19.1 ug/mL
[2021-09-05 08:47] LABS: Anion Gap 13 mmol/L (10-20); BUN (Urea Nitrogen) 28 mg/dL (8.4-25.7); Calc. Creatinine Clearance 58 mL/min (70-130); Calcium 8.2 mg/dL (7.8-10.44); Carbon Dioxide 21 mmol/L (23-31); Chloride 106 mmol/L (98-107); Glucose 98 mg/dL (83-110); Sodium 135 mmol/L (136-145)
[2021-09-05] MEDS: Acetaminophen 325 MG TAB PO PRN (10:47)
[2021-09-05] MEDS: Multivit, Therapeutic 1 TAB PO SCH (19:55)
[2021-09-05] MEDS: Aspirin Chewable 81 MG TAB PO SCH (19:55)
[2021-09-05] MEDS: Tamsulosin HCl 0.4 MG CAP PO SCH (19:56)
[2021-09-06] MEDS: Meropenem 1 GM in Sodium Chloride 0.9% 100 ML IVPB SCH ×4 (00:29→23:36)
[2021-09-06] MEDS: methylPREDNISolone Sod Succ 40 MG VIAL IVP SCH (05:19)
[2021-09-06 08:24] LABS: Vancomycin, Trough 19.2 ug/mL
[2021-09-06] MEDS: Lansoprazole 3 MG/ML ORAL SUSPENSION PER TUBE SCH (08:29)
[2021-09-06] MEDS: Lisinopril 20 MG TAB PO SCH ×2 (08:30→19:58)
[2021-09-06] MEDS: Spironolactone 25 MG TAB PO SCH (08:30)
[2021-09-06] MEDS: Enoxaparin Sodium 40 MG/0.4 ML SYRINGE SC SCH ×2 (08:30→19:56)
[2021-09-06] MEDS: Polyethylene Glycol 3350 17 GM Packet PO SCH (08:31)
[2021-09-06] MEDS: Nystatin Powder 15 GM BOT TOP SCH ×2 (08:31→20:18)
[2021-09-06] MEDS: Carvedilol 3.125 MG TAB PO SCH ×2 (08:31→16:33)
[2021-09-06] MEDS: Senokot S 8.6-50 MG TAB PO SCH ×2 (08:31→20:20)
[2021-09-06] MEDS: VANCOMYCIN 1.25 GM/250 ML BAG 1.25 GM in Premix Bag 1 BAG IVPB SCH (10:09)
[2021-09-06] MEDS: Aspirin Chewable 81 MG TAB PO SCH (19:57)
[2021-09-06] MEDS: Multivit, Therapeutic 1 TAB PO SCH (19:57)
[2021-09-06] MEDS: Tamsulosin HCl 0.4 MG CAP PO SCH (19:57)
[2021-09-07 05:49] LABS: #Eosinphils 0.4 thou/uL (0.0-0.7); #Lymphocytes 1.5 thou/uL (1.20-3.40); #Monocytes 0.9 thou/uL (0.11-0.59); #Neutrophils 5.2 thou/uL (1.40-6.50); %Basophils 0.5 % (0.0-1.0); %Eosinophils 5.3 % (0.0-10.0); %Lymphocytes 18.4 % (21.0-51.0); %Monocytes 11.3 % (0.0-10.0); %Neutrophils 64.4 % (42.0-75.0); Hemoglobin 11.8 g/dL (14.0-18.0); Mean Corpuscular HGB CONC 32.6 g/dL (32.0-36.0); Mean Corpuscular Hemoglobin 32.9 pg (27.0-31.0); Mean Platelet Volume 8.7 fL (7.4-10.4); Platelet Count 282 thou/uL (130-400); RBC Distribution Width 13.3 % (11.5-14.5); Red Blood Cell (RBC) Count 3.57 mill/uL (4.70-6.10)
[2021-09-07] MEDS: methylPREDNISolone Sod Succ 40 MG VIAL IVP SCH (06:05)
[2021-09-07 06:14] LABS: Anion Gap 10 mmol/L (10-20); BUN (Urea Nitrogen) 22 mg/dL (8.4-25.7); Calc. Creatinine Clearance 62 mL/min (70-130); Calcium 8.2 mg/dL (7.8-10.44); Carbon Dioxide 27 mmol/L (23-31); Chloride 106 mmol/L (98-107); Glucose 90 mg/dL (83-110); Potassium 4.7 mmol/L (3.5-5.1); Sodium 138 mmol/L (136-145)
[2021-09-07] MEDS: Carvedilol 3.125 MG TAB PO SCH ×2 (09:54→16:09)
[2021-09-07] MEDS: Lisinopril 20 MG TAB PO SCH ×3 (09:54→21:00)
[2021-09-07] MEDS: Spironolactone 25 MG TAB PO SCH (09:54)
[2021-09-07] MEDS: VANCOMYCIN 1.25 GM/250 ML BAG 1.25 GM in Premix Bag 1 BAG IVPB SCH (09:56)
[2021-09-07] MEDS: Enoxaparin Sodium 40 MG/0.4 ML SYRINGE SC SCH (09:56)
[2021-09-07] MEDS: Lansoprazole 3 MG/ML ORAL SUSPENSION PER TUBE SCH (09:57)
[2021-09-07] MEDS: Nystatin Powder 15 GM BOT TOP SCH ×2 (09:57→20:07)
[2021-09-07] MEDS: Senokot S 8.6-50 MG TAB PO SCH ×3 (09:57→21:00)
[2021-09-07] MEDS: Meropenem 1 GM in Sodium Chloride 0.9% 100 ML IVPB SCH ×2 (12:12→20:03)
[2021-09-07] MEDS: Aspirin Chewable 81 MG TAB PO SCH ×2 (20:03→21:00)
[2021-09-07] MEDS: Apixaban 5 MG TAB PO SCH ×2 (20:04→21:00)
[2021-09-07] MEDS: Melatonin 3 MG TAB PO PRN (20:04)
[2021-09-07] MEDS: Multivit, Therapeutic 1 TAB PO SCH ×2 (20:04→21:00)
[2021-09-07] MEDS: Tamsulosin HCl 0.4 MG CAP PO SCH ×2 (20:04→21:00)
[2021-09-07] MEDS: Acetaminophen 325 MG TAB PO PRN (20:05)
[2021-09-07] MEDS ORDERED: hydrOXYzine 25 MG TAB PO SCH (22:45)
[2021-09-08] MEDS: Meropenem 1 GM in Sodium Chloride 0.9% 100 ML IVPB SCH ×3 (03:08→19:25)
[2021-09-08] MEDS: methylPREDNISolone Sod Succ 40 MG VIAL IVP SCH (05:09)
[2021-09-08 08:19] LABS: Vancomycin, Trough 23.1 ug/mL
[2021-09-08] MEDS: Carvedilol 3.125 MG TAB PO SCH ×2 (09:11→17:23)
[2021-09-08] MEDS: Senokot S 8.6-50 MG TAB PO SCH ×2 (09:11→20:06)
[2021-09-08] MEDS: Apixaban 5 MG TAB PO SCH ×2 (09:12→19:53)
[2021-09-08] MEDS: Lisinopril 20 MG TAB PO SCH ×2 (09:12→19:53)
[2021-09-08] MEDS: Spironolactone 25 MG TAB PO SCH (09:13)
[2021-09-08] MEDS: Nystatin Powder 15 GM BOT TOP SCH ×2 (09:13→19:24)
[2021-09-08] MEDS: Lansoprazole 3 MG/ML ORAL SUSPENSION PER TUBE SCH (09:14)
[2021-09-08] MEDS: VANCOMYCIN 1.25 GM/250 ML BAG 1.25 GM in Premix Bag 1 BAG IVPB SCH (09:44)
[2021-09-08] MEDS: Vancomycin 1 GM in Premix Bag 1 BAG IVPB SCH (10:01)
[2021-09-08] MEDS: Dextrose 5 %-0.45 % NaCl 1,000 ML IV SCH (17:18)
[2021-09-08] MEDS: Aspirin Chewable 81 MG TAB PO SCH (20:05)
[2021-09-08] MEDS: Multivit, Therapeutic 1 TAB PO SCH (20:05)
[2021-09-08] MEDS: Tamsulosin HCl 0.4 MG CAP PO SCH (20:06)
[2021-09-08] MEDS ORDERED: risperiDONE 1 MG TAB PO SCH (21:00)
[2021-09-09] MEDS: Dextrose 5 %-0.45 % NaCl 1,000 ML IV SCH ×2 (02:42→05:32)
[2021-09-09] MEDS: Meropenem 1 GM in Sodium Chloride 0.9% 100 ML IVPB SCH (03:10)
[2021-09-09 07:48] VITALS: TEMP 98.4
[2021-09-09] MEDS: Carvedilol 3.125 MG TAB PO SCH (09:48)
[2021-09-09] MEDS: Apixaban 5 MG TAB PO SCH (09:48)
[2021-09-09] MEDS: Lansoprazole 3 MG/ML ORAL SUSPENSION PER TUBE SCH (09:48)
[2021-09-09] MEDS: Spironolactone 25 MG TAB PO SCH (09:48)
[2021-09-09] MEDS: Lisinopril 20 MG TAB PO SCH (09:49)
[2021-09-09] MEDS: Senokot S 8.6-50 MG TAB PO SCH (09:49)
[2021-09-09 09:50] VITALS: BP 177/94
[2021-09-09] MEDS: Nystatin Powder 15 GM BOT TOP SCH (11:20)
[2021-09-09] MEDS: Vancomycin 1 GM in Premix Bag 1 BAG IVPB SCH (11:53)
== END 2021-09-09 15:52 | disposition home health service (06) | DRG 698 ==
LOC: 2NO 08-24 01:13 → CCU 08-26 00:20 → T4-A 08-31 03:53
PROVIDERS: ADMIT Student in an Organized Health Care Education/Training Program; ATTEND Internal Medicine
PROC: 5A09457 Assistance with Respiratory Ventilation, 24-96 Consecutive Hours, Continuous Positive Airway Pressure (ICD-10-PCS; principal; 2021-08-26)
PROC: 0DH67UZ Insertion of Feeding Device into Stomach, Via Natural or Artificial Opening (ICD-10-PCS; 2021-08-27)
PROC: 3E0G76Z Introduction of Nutritional Substance into Upper GI, Via Natural or Artificial Opening (ICD-10-PCS; 2021-08-27)
DX: T83.511A Infection and inflammatory reaction due to indwelling urethral catheter, initial encounter (principal); Z66 Do not resuscitate; Z20.822 Contact with and (suspected) exposure to COVID-19; A41.52 Sepsis due to Pseudomonas; A41.81 Sepsis due to Enterococcus; R65.21 Severe sepsis with septic shock; G92.8 Other toxic encephalopathy; I21.A1 Myocardial infarction type 2; I50.23 Acute on chronic systolic (congestive) heart failure; J69.0 Pneumonitis due to inhalation of food and vomit; J96.01 Acute respiratory failure with hypoxia; F03.91 Unspecified dementia, unspecified severity, with behavioral disturbance; F05 Delirium due to known physiological condition; E87.0 Hyperosmolality and hypernatremia; E87.2 Acidosis; I82.413 Acute embolism and thrombosis of femoral vein, bilateral; I82.442 Acute embolism and thrombosis of left tibial vein; I82.432 Acute embolism and thrombosis of left popliteal vein; I42.0 Dilated cardiomyopathy; E44.1 Mild protein-calorie malnutrition; N39.0 Urinary tract infection, site not specified; Y84.6 Urinary catheterization as the cause of abnormal reaction of the patient, or of later complication, without mention of misadventure at the time of the procedure; I11.0 Hypertensive heart disease with heart failure; E87.6 Hypokalemia; N18.30 Chronic kidney disease, stage 3 unspecified; K59.00 Constipation, unspecified; Z96.641 Presence of right artificial hip joint; N40.1 Benign prostatic hyperplasia with lower urinary tract symptoms; R33.8 Other retention of urine; R13.12 Dysphagia, oropharyngeal phase; Z78.1 Physical restraint status; Z28.21 Immunization not carried out because of patient refusal; Z88.0 Allergy status to penicillin; Z91.013 Allergy to seafood; Z79.899 Other long term (current) drug therapy; Z79.82 Long term (current) use of aspirin; Z90.49 Acquired absence of other specified parts of digestive tract; Z98.49 Cataract extraction status, unspecified eye; Z98.890 Other specified postprocedural states; Z86.73 Personal history of transient ischemic attack (TIA), and cerebral infarction without residual deficits; Z68.24 Body mass index [BMI] 24.0-24.9, adult
CPT/HCPCS: 36415; 36416; 36600; 71045; 74018; 74176; 76705; 80048; 80053; 80076; 80202; 82140; 82533; 82607; 82746; 82805; 83605; 83735; 83880; 84100; 84484; 85025; 86140; 87040; 93005; 93010; 93306; 93970; 94660; C9113; J0360; J0692; J1650; J1815; J1940; J2060; J2185; J2405; J2920; J2930; J3370; J3480; J3490; J7042; J7050; U0003; U0005